=== PATIENT | female | born 1980 | race Caucasian/White ===

== ENCOUNTER → 2019-07-10 | Outpatient (CLI) | payer OTHER ==
[~2019-07-10] MED LIST: Antivert25 MG PO; Esgic Tablet1 EACH PO; MAGOXI400 PO
[2019-07-11 15:07] LABS: HPV 16 Negative (Negative); HPV 18 Negative (Negative); HPV OTHER HR TYPES Negative (Negative)
== END | disposition home or self-care (01) ==
LOC: LAB 11:51 → LAB SHORT 11:51
PROVIDERS: Nurse Practitioner Women's Health
DX: Z12.4 Encounter for screening for malignant neoplasm of cervix (principal); Z91.89 Other specified personal risk factors, not elsewhere classified
CPT/HCPCS: 87624; G0123

== ENCOUNTER 2021-04-06 08:40 | Emergency (ER) | payer OTHER ==
[~2021-04-06] VITALS: Ht 160 cm; Wt 81.7 kg
[2021-04-06 09:40] LABS: Source, Urine Clean Catch
[2021-04-06 09:48] LABS: Appearance, Urine Clear (Clear); Bilirubin, Urine Neg (Neg); Blood, Urine Neg (Neg); Color, Urine Yellow (P-Yellow); Glucose Qualitative, Urine Neg (Neg); Ketones, Urine Neg (Neg); Leukocyte Esterase, Urine Neg (Neg); Nitrite, Urine Neg (Neg); Protein, Urine Neg (Neg); Specific Gravity, Urine 1.005 (1.003-1.022); Urobilinogen, Urine NORM (Normal)
[2021-04-06 10:35] LABS: BASOPHILS ABSOLUTE AUTO 0.04 K/mm3 (0.00-0.23); BASOPHILS PERCENT AUTO 1 % (0-2); EOSINOPHILS ABSOLUTE AUTO 0.12 K/mm3 (0.00-0.68); EOSINOPHILS PERCENT AUTO 2 % (0-6); Hematocrit 38.1 % (33.0-51.0); Hemoglobin 12.7 g/dL (11.5-16.0); IMMATURE GRAN ABSOLUTE AUTO 0.03 K/mm3 (0.00-0.10); IMMATURE GRAN PERCENT AUTO 0 % (0-1); LYMPHOCYTES ABSOLUTE AUTO 1.73 K/mm3 (0.84-5.20); LYMPHOCYTES PERCENT AUTO 22 % (21-46); MONOCYTES ABSOLUTE AUTO 0.67 K/mm3 (0.16-1.47); MONOCYTES PERCENT AUTO 9 % (4-13); Mean Corpuscular HGB 29.3 pg (26.0-34.0); Mean Corpuscular HGB Conc 33.3 g/dL (31.5-36.5); Mean Corpuscular Volume 88 fL (80-100); Mean Platelet Volume 10.4 fL (9.1-12.4); NEUTROPHILS ABSOLUTE AUTO 5.18 K/mm3 (1.96-9.15); NEUTROPHILS PERCENT AUTO 67 % (41-73); Platelet Count 275 K/mm3 (150-400); RDW Coefficient Variation 12.5 % (11.7-14.2); RDW Standard Deviation 40.1 fL (35.1-46.3); Red Blood Cell Count 4.34 M/mm3 (3.80-5.20); White Blood Cell Count 7.77 K/mm3 (4.00-11.30)
[2021-04-06 10:38] LABS: Alanine Aminotransfer (ALT/SGP 29 U/L (12-78); Albumin, Blood 3.4 g/dL (3.4-5.0); Albumin/Globulin Ratio 0.8 (0.8-1.8); Alk Phos 61 U/L (50-136); Anion Gap 7 mmol/L (6-16); Aspartate Aminotrans (AST/SGOT 15 U/L (12-37); Bilirubin, Total 0.4 mg/dL (0.1-1.0); Blood Urea Nitrogen 14 mg/dL (8-24); Bun/Creatinine Ratio 15.6 (12.0-20.0); CO2, Blood 22 mmol/L (21-32); Calcium, Blood 8.7 mg/dL (8.5-10.1); Chloride, Blood 110 mmol/L (98-108); Globulin, Blood 4.1 g/dL (2.2-4.0); Glomerular Filtration Rate >60 (60-); Glucose, Blood 101 mg/dL (70-99); Potassium, Blood 3.8 mmol/L (3.5-5.5); Sodium, Blood 139 mmol/L (136-145); Total Protein, Blood 7.5 g/dL (6.4-8.2)
== END 2021-04-06 13:07 | disposition home or self-care (01) ==
LOC: ER 08:40
PROVIDERS: Emergency Medicine
DX: R10.11 Right upper quadrant pain (principal); N83.202 Unspecified ovarian cyst, left side; N83.201 Unspecified ovarian cyst, right side; Z88.2 Allergy status to sulfonamides; Z91.018 Allergy to other foods
CPT/HCPCS: 36415; 74177; 76705; 80053; 81003; 81025; 83690; 85025; 96374-59; 96375; 99284-25; J1885; J2405; Q9967

== ENCOUNTER 2024-02-21 06:23 | Inpatient (IN) | payer BC ==
[~2024-02-21] VITALS: Ht 161 cm; Wt 101.6 kg
[2024-02-21] VITALS (21 sets, daily range): BP systolic 113–141; BP diastolic 62–98
[~2024-02-21 06:23] MED LIST changes: +CeFAZolin Sodium 2,000 MG in NS 100 ML IV SCH; +IRON PO; +Lactated Ringer's 1,000 ML IV SCH; +MAGNESIUM PO; +MULVITA PO; +OMEP20ER PO; +VITAMIN D5000 UNIT PO; +[UNRECOGNIZED DRUG - OTHER]
[2024-02-21] MEDS ORDERED: propofoL 20 ML IV ONE (07:25)
[2024-02-21] MEDS ORDERED: Lidocaine HCl 2% 20 ML MDV ONE (07:25)
[2024-02-21] MEDS ORDERED: Rocuronium Bromide 10 MG/ML 5ML Injection IV ONE ×4 (07:26→09:45)
[2024-02-21] MEDS ORDERED: FentaNYL Citrate 50 MCG/ML 2 ML Injection ONE ×5 (07:26→12:22)
[2024-02-21] MEDS ORDERED: Lidocaine HCl 2% Jelly 120MG/6ML SYR (20MG PER ML) ONE (07:27)
[2024-02-21] MEDS ORDERED: Ondansetron HCl 2 MG / ML 2ML Vial IV PRN ×2 (07:35→12:30)
[2024-02-21] MEDS ORDERED: Midazolam HCl 1MG / ML 2ML Vial IV ONE (07:35)
[2024-02-21] MEDS ORDERED: Lidocaine HCl 1% 5 ML SYR INJ ONE (07:35)
[2024-02-21] MEDS ORDERED: HYDROmorphone HCl/Pf 1MG SYR IV PRN ×2 (07:40→12:05)
[2024-02-21] MEDS ORDERED: FentaNYL Citrate 50 MCG/ML 2 ML Injection IV PRN ×2 (07:40)
[2024-02-21] MEDS ORDERED: Bupivacaine 0.5% HCl 5 MG/ML 30MLVIAL ONE (07:46)
[2024-02-21] MEDS ORDERED: OMEP20ER PO (07:58)
[2024-02-21] MEDS ORDERED: MAGNESIUM GLU27.5 MG PO (08:00)
[2024-02-21] MEDS ORDERED: Dexamethasone Sod Phos 10 MG/ML 1ML VIAL ONE (08:25)
[2024-02-21] MEDS ORDERED: Ondansetron HCl 2 MG / ML 2ML Vial ONE (08:25)
[2024-02-21] MEDS ORDERED: Metoclopramide HCl 5MG / ML 2ML Vial ONE (08:26)
[2024-02-21] MEDS ORDERED: Labetalol HCL 5 MG/ML 4ML Injection (Single Dose) ONE (08:42)
[2024-02-21] MEDS ORDERED: Phenylephrine HCl 100 MCG/ML-NS 10MLSYR (1MG/10ML) ONE (09:45)
--- NOTE | 2024-02-21 10:10 | NUR ---
02/21/24 1010 Helen Gavin ROBOTIC HYSTER CONVERTED TO OPEN HYSTER AT ABOUT 1005
[2024-02-21] MEDS ORDERED: Sugammadex Sodium 200 MG/2ML SDV (100 MG/ML) ONE (11:05)
[2024-02-21] MEDS ORDERED: Ketorolac Tromethamine 30mg Vial ONE (11:31)
[2024-02-21] MEDS ORDERED: Metoclopramide HCl 5MG / ML 2ML Vial IV PRN (12:05)
[2024-02-21] MEDS ORDERED: Naloxone HCl 0.4MG / ML 1ML Vial IV PRN (12:05)
[2024-02-21] MEDS ORDERED: Lactated Ringer's 1,000 ML IV SCH (12:05)
[2024-02-21] MEDS ORDERED: Metoclopramide HCl 10 MG Tab PO PRN (12:05)
[2024-02-21] MEDS ORDERED: Ondansetron 4 MG TAB PO PRN (12:05)
[2024-02-21] MEDS ORDERED: DiphenhydrAMINE HCL 25 MG Cap PO PRN (12:10)
[2024-02-21] MEDS ORDERED: Simethicone 80 MG Chew PO PRN (12:10)
[2024-02-21] MEDS ORDERED: OxyCODONE HCL 5 MG TAB PO PRN (12:10)
[2024-02-21] MEDS ORDERED: Acetaminophen 325 MG TABLET PO PRN (12:10)
[2024-02-21] MEDS ORDERED: Ibuprofen 400 MG Tab PO PRN (12:10)
[2024-02-21] MEDS ORDERED: HYDROmorphone HCl/Pf 1MG SYR ONE (12:23)
[2024-02-21] MEDS ORDERED: Ketorolac Tromethamine 30mg Vial IV PRN (12:30)
[2024-02-21 13:54] LABS: BASOPHILS ABSOLUTE AUTO 0.03 K/mm3 (0.00-0.23); BASOPHILS PERCENT AUTO 0 % (0-2); EOSINOPHILS ABSOLUTE AUTO 0.01 K/mm3 (0.00-0.68); EOSINOPHILS PERCENT AUTO 0 % (0-6); Hematocrit 29.8 % (33.0-51.0); Hemoglobin 9.8 g/dL (11.5-16.0); IMMATURE GRAN ABSOLUTE AUTO 0.05 K/mm3 (0.00-0.10); IMMATURE GRAN PERCENT AUTO 0 % (0-1); LYMPHOCYTES ABSOLUTE AUTO 0.49 K/mm3 (0.84-5.20); LYMPHOCYTES PERCENT AUTO 4 % (21-46); MONOCYTES ABSOLUTE AUTO 0.47 K/mm3 (0.16-1.47); MONOCYTES PERCENT AUTO 3 % (4-13); Mean Corpuscular HGB Conc 32.9 g/dL (31.5-36.5); Mean Corpuscular Volume 85 fL (80-100); Mean Platelet Volume 9.7 fL (9.1-12.4); NEUTROPHILS ABSOLUTE AUTO 12.69 K/mm3 (1.96-9.15); NEUTROPHILS PERCENT AUTO 92 % (41-73); Platelet Count 277 K/mm3 (150-400); RDW Coefficient Variation 14.3 % (11.7-14.2); White Blood Cell Count 13.74 K/mm3 (4.00-11.30)
[2024-02-21] MEDS ORDERED: Omeprazole 20 MG CapCR PO SCH (16:30)
--- NOTE | 2024-02-21 18:28 | NUR ---
PT STABLE POST OP DAY 0 FOR LAP HYSTER CONVERTED TO OPEN HYSTER. PT HAS TRANSVERSE DRESSING ON LOWER ABDOMEN THAT IS CLEAN, DRY AND INTACT. PT HAS HAD SMALL AMT VAG BLEEDING, JENNIFER PAD CHANGED X1. C[place] REMAINS IN PLACE, DRAINING CLEAR YELLOW URINE. TO BE DC'D WHEN PT AMBULATING. PT ABLE TO STAND AT SOB WITH SOME WEAKNESS AND DIZZINESS. PT H+H STABLE AT RECHECK THIS AFTERNOON. PT DUYEN REG DIET, NO NAUSEA. PAIN CONTROLLED WITH PRN MEDS. KPAD TO ABD FOR PAIN RELIEF. PAS TO BLE. WEANED TO RA POST OP. IV INFUSING PER ORDERS. PT USES CALL LIGHT APPROPRIATELY NEEDED.
[2024-02-22 04:58] VITALS: BP 129/66
[2024-02-22 05:03] LABS: BASOPHILS ABSOLUTE AUTO 0.03 K/mm3 (0.00-0.23); BASOPHILS PERCENT AUTO 0 % (0-2); EOSINOPHILS ABSOLUTE AUTO 0.02 K/mm3 (0.00-0.68); EOSINOPHILS PERCENT AUTO 0 % (0-6); Hematocrit 25.5 % (33.0-51.0); Hemoglobin 8.2 g/dL (11.5-16.0); IMMATURE GRAN ABSOLUTE AUTO 0.05 K/mm3 (0.00-0.10); IMMATURE GRAN PERCENT AUTO 1 % (0-1); LYMPHOCYTES ABSOLUTE AUTO 1.09 K/mm3 (0.84-5.20); LYMPHOCYTES PERCENT AUTO 10 % (21-46); MONOCYTES ABSOLUTE AUTO 1.15 K/mm3 (0.16-1.47); MONOCYTES PERCENT AUTO 11 % (4-13); Mean Corpuscular HGB 28.2 pg (26.0-34.0); Mean Corpuscular HGB Conc 32.2 g/dL (31.5-36.5); Mean Corpuscular Volume 88 fL (80-100); Mean Platelet Volume 9.9 fL (9.1-12.4); NEUTROPHILS ABSOLUTE AUTO 8.38 K/mm3 (1.96-9.15); NEUTROPHILS PERCENT AUTO 78 % (41-73); Platelet Count 252 K/mm3 (150-400); RDW Coefficient Variation 14.3 % (11.7-14.2); RDW Standard Deviation 45.3 fL (35.1-46.3); Red Blood Cell Count 2.91 M/mm3 (3.80-5.20); White Blood Cell Count 10.72 K/mm3 (4.00-11.30)
--- NOTE | 2024-02-22 06:13 | NUR ---
SHIFT SUMMARY POD 1 OPEN ABD HYSTER PT ABLE TO SLEEP DURING THE SHIFT. PAIN MANAGED PER EMAR. TRANSVERSE ABD INCISION COVERED BY MEDIPORE AND REINFORCED, DRESSING IS DRY AND INTACT HAS SOME DRAINAGE. PT HAS MINIMAL BLEEDING ON JENNIFER PAD. PT UP AND AMB THIS AM. FLOEY CATH TAKEN OUT, AWAITING FIRST VOID. PT TOLERATING PO INTAKE, VOIDING WELL. VSS. NO OTHER CONCERNS AT THIS TIME, CALL LIGHT WITHIN REACH
[2024-02-22 07:08] VITALS: BP 126/71
[2024-02-22] MEDS ORDERED: Magnesium Oxide 400 MG Tab PO SCH (09:00)
[2024-02-22] MEDS ORDERED: Enoxaparin 40 MG/0.4 ML SYR SC SCH (09:00)
[2024-02-22] MEDS ORDERED: Acetaminophen650 M1 PO (10:50)
[2024-02-22] MEDS ORDERED: IBUP800 PO (10:50)
[2024-02-22] MEDS ORDERED: OXAYDO5 M1 PO (10:51)
--- NOTE | 2024-02-22 11:27 | NUR ---
DISCHARGE POD 1 LAP TO OPEN HYSTERECTOMY PT PAIN CONTROLLED PER EMAR. TOLERATING AMBULATION WELL. PASSING SMALL AMOUNT OF FLATUS. LAP SITES REMAIN CDI. ABD BINDER AND MEDIPORES SENT FOR PATIENT COMFORT. TOLERATING DIET WELL, NO NAUSEA. PRESCRIPTIONS PICKED UP PRIOR TO DISCHARGE. ALL BELONGINGS WITH PATIENT. ALL INSTRUCTIONS GONE OVER WITH PATIENT. ALL QUESTIONS ANSWERED.
== END 2024-02-22 11:15 | disposition home or self-care (01) | DRG 742 ==
LOC: ORSCMMR 06:23 → ORD 08:00 → SURS 12:00 → ORSCMMR 12:00 → SURS 12:29
PROVIDERS: ADMIT Obstetrics & Gynecology
PROC: 8E0W4CZ Robotic Assisted Procedure of Trunk Region, Percutaneous Endoscopic Approach (ICD-10-PCS; 2024-02-21)
PROC: 0UT94ZZ Resection of Uterus, Percutaneous Endoscopic Approach (ICD-10-PCS; principal; 2024-02-21 08:00)
PROC: 0UB74ZZ Excision of Bilateral Fallopian Tubes, Percutaneous Endoscopic Approach (ICD-10-PCS; 2024-02-21 08:00)
DX: D25.9 Leiomyoma of uterus, unspecified (principal); D62 Acute posthemorrhagic anemia; N92.0 Excessive and frequent menstruation with regular cycle; N94.6 Dysmenorrhea, unspecified; Z88.2 Allergy status to sulfonamides; Z79.899 Other long term (current) drug therapy; K21.9 Gastro-esophageal reflux disease without esophagitis; Z79.891 Long term (current) use of opiate analgesic; Z98.890 Other specified postprocedural states
CPT/HCPCS: 36415; 85025; 88307; 94762; A9270; J0690; J1100; J1170; J1650; J1885; J2250; J2371; J2405; J2704; J2765; J3010; J7120

== ENCOUNTER 2024-08-21 12:23 | Day surgery (SDC) | payer BC ==
[~2024-08-21] VITALS: Ht 160 cm; Wt 99.0 kg
[~2024-08-21 12:23] MED LIST changes: +Acetaminophen650 M1 PO; -CeFAZolin Sodium 2,000 MG in NS 100 ML IV SCH; +IBUP800 PO; +Lactated Ringer's 1,000 ML IV ONE; -Lactated Ringer's 1,000 ML IV SCH; +MAGNESIUM GLU27.5 MG PO; +OXAYDO5 M1 PO; +propofoL 50 ML IV ONE
[2024-08-21] MEDS ORDERED: Vitamin C100 M1 (12:37)
[2024-08-21] MEDS ORDERED: ALGAL OMEGA-3200 MG (12:37)
[2024-08-21] MEDS ORDERED: Lactated Ringer's 1,000 ML IV ONE (13:29)
[2024-08-21 14:41] VITALS: BP 141/92
== END 2024-08-21 14:35 | disposition home or self-care (01) ==
LOC: ORSCSDS 12:23
PROVIDERS: Surgery
PROC: 0DBH8ZX Excision of Cecum, Via Natural or Artificial Opening Endoscopic, Diagnostic (ICD-10-PCS; principal; 2024-08-21 13:45)
PROC: 0DBL8ZX Excision of Transverse Colon, Via Natural or Artificial Opening Endoscopic, Diagnostic (ICD-10-PCS; principal; 2024-08-21 13:45)
PROC: 0DBK8ZX Excision of Ascending Colon, Via Natural or Artificial Opening Endoscopic, Diagnostic (ICD-10-PCS; principal; 2024-08-21 13:45)
DX: Z12.11 Encounter for screening for malignant neoplasm of colon (principal); D12.0 Benign neoplasm of cecum; D12.2 Benign neoplasm of ascending colon; D12.3 Benign neoplasm of transverse colon; K64.4 Residual hemorrhoidal skin tags; K64.8 Other hemorrhoids; K44.9 Diaphragmatic hernia without obstruction or gangrene; K21.9 Gastro-esophageal reflux disease without esophagitis; Z79.899 Other long term (current) drug therapy; E66.9 Obesity, unspecified; Z68.38 Body mass index [BMI] 38.0-38.9, adult
CPT/HCPCS: 88305; J2704; J7120